=== PATIENT | male | born 1980 | race Caucasian/White ===

== ENCOUNTER 2017-07-25 15:41 | Emergency (ER) | payer BC ==
[~2017-07-25] VITALS: Ht 172.7 cm; Wt 113.9 kg
[~2017-07-25 15:41] MED LIST: BACTRIM DS 8001 TA1 PO; FLAGYL500 MG PO; HYDROCODONE BIT1 T11 PO; KEFLEX500 MG PO; LEVOFLOXACIN500 MG PO; Motrin,Rufen800 MG PO
[2017-07-25] MEDS ORDERED: Motrin,Rufen800 MG PO (16:17)
[2017-07-25] MEDS ORDERED: BACITRACIN ZIN0.9 GM T (16:17)
== END 2017-07-25 16:57 | disposition home or self-care (01) ==
LOC: ED 15:41
DX: T23.202A Burn of second degree of left hand, unspecified site, initial encounter (principal); X19.XXXA Contact with other heat and hot substances, initial encounter; Y93.89 Activity, other specified; Y92.89 Other specified places as the place of occurrence of the external cause; Y99.8 Other external cause status

== ENCOUNTER 2017-09-04 09:43 | Emergency (ER) | payer BC ==
[~2017-09-04] VITALS: Ht 172.7 cm; Wt 113.4 kg
[~2017-09-04 09:43] MED LIST changes: +BACITRACIN ZIN0.9 GM T
[2017-09-04 10:16] LABS: BASO % 0.1 % (0.0-1.0); EOS % 0.2 % (1.0-4.0); HEMATOCRIT 45.5 % (42.0-52.0); HEMOGLOBIN 15.3 g/dl (14.0-18.0); LYMPH # 1.3 10*3/uL (1.3-4.4); LYMPH % 12.2 % (27.0-41.0); MEAN CELL VOLUME 81.3 fl (80.0-94.0); MEAN CORPUSCULAR HGB 27.3 pg (27.0-31.0); MEAN CORPUSCULAR HGB CONC 33.6 g/dl (33.0-37.0); MEAN PLATELET VOLUME 9.9 fl (9.6-12.3); MONO # 0.7 10*3/uL (0.1-1.0); MONO % 7.2 % (3.0-9.0); NEUT # 8.2 10*3/uL (2.3-7.9); PLATELET COUNT AUTOMATED 241 10*3/uL (130-400); RED CELL DISTRI WIDTH 12.9 % (0-14.5); WHITE BLOOD COUNT 10.2 10*3/uL (4.8-10.8)
[2017-09-04 10:32] LABS: ALBUMIN 4.2 gm/dl (3.1-4.5); ALKALINE PHOSPHATASE 75 U/L (45-117); BUN 10 mg/dl (7-24); CHLORIDE 104 mmol/L (98-107); CREATININE 0.94 mg/dL (0.70-1.30); SGOT/AST 23 IU/L (3-35); SGPT/ALT 39 U/L (12-78); SODIUM 138 mmol/L (136-145); TOTAL PROTEIN 7.5 gm/dL (6.4-8.2)
== END 2017-09-04 18:40 | disposition short-term general hospital (02) ==
LOC: ED 09:43
PROVIDERS: Nurse Practitioner Family
DX: K11.21 Acute sialoadenitis (principal); R03.0 Elevated blood-pressure reading, without diagnosis of hypertension

== ENCOUNTER 2017-12-28 20:21 | Emergency (ER) | payer BC ==
[~2017-12-28] VITALS: Ht 175.2 cm; Wt 117.9 kg
[2017-12-28] MEDS ORDERED: IBUPROFEN600 MG PO (20:58)
== END 2017-12-28 21:23 | disposition home or self-care (01) ==
LOC: ED 20:21
DX: S83.92XA Sprain of unspecified site of left knee, initial encounter (principal); R03.0 Elevated blood-pressure reading, without diagnosis of hypertension; F17.200 Nicotine dependence, unspecified, uncomplicated; X50.1XXA Overexertion from prolonged static or awkward postures, initial encounter; Y93.89 Activity, other specified; Y92.89 Other specified places as the place of occurrence of the external cause; Y99.8 Other external cause status

== ENCOUNTER 2018-11-24 14:17 | Emergency (ER) | payer BC ==
[~2018-11-24] VITALS: Ht 177.8 cm; Wt 113.4 kg
[~2018-11-24 14:17] MED LIST changes: +IBUPROFEN600 MG PO
[2018-11-24] MEDS ORDERED: CYCLOBENZAPRINE5 M3 PO (15:39)
[2018-11-24] MEDS ORDERED: Motrin,Rufen800 MG PO (15:39)
== END 2018-11-24 15:47 | disposition home or self-care (01) ==
LOC: ED 14:17
DX: M62.838 Other muscle spasm (principal); M54.2 Cervicalgia; M43.6 Torticollis

== ENCOUNTER 2019-07-16 14:48 | Emergency (ER) | payer BC ==
[~2019-07-16] VITALS: Ht 170.1 cm; Wt 113.4 kg
[~2019-07-16 14:48] MED LIST changes: +CYCLOBENZAPRINE5 M3 PO
== END 2019-07-16 16:47 | disposition home or self-care (01) ==
LOC: ED 14:48
DX: S90.31XA Contusion of right foot, initial encounter (principal); W20.8XXA Other cause of strike by thrown, projected or falling object, initial encounter; Y93.89 Activity, other specified; Y92.89 Other specified places as the place of occurrence of the external cause; Y99.8 Other external cause status

== ENCOUNTER 2023-06-14 12:50 | Emergency (ER) | payer BC ==
[~2023-06-14] VITALS: Ht 165.1 cm; Wt 122.5 kg
[2023-06-14] MEDS ORDERED: NAPROSYN500 MG PO (15:10)
[2023-06-14] MEDS ORDERED: MEDROL DOSEPAK4 MG PO (15:10)
[2023-06-14] MEDS ORDERED: ZANAFLEX4 MG PO (15:10)
== END 2023-06-14 15:22 | disposition home or self-care (01) ==
LOC: ED 12:50
DX: S39.012A Strain of muscle, fascia and tendon of lower back, initial encounter (principal); Z98.890 Other specified postprocedural states; X58.XXXA Exposure to other specified factors, initial encounter; Y93.89 Activity, other specified; Y92.89 Other specified places as the place of occurrence of the external cause; Y99.8 Other external cause status